=== PATIENT | male | born 1990 | race African-American/Black ===

== ENCOUNTER 2021-03-12 07:44 | Emergency (ER) | payer OTHER ==
[~2021-03-12] VITALS: Ht 180.3 cm; Wt 70.9 kg
[2021-03-12 09:42] VITALS: BP 117/66
== END 2021-03-12 09:44 | disposition home or self-care (01) ==
LOC: M ED 07:44
DX: S49.91XA Unspecified injury of right shoulder and upper arm, initial encounter (principal); X58.XXXA Exposure to other specified factors, initial encounter; Y92.89 Other specified places as the place of occurrence of the external cause; Y99.0 Civilian activity done for income or pay